=== PATIENT | male | born 1995 | race Caucasian/White ===

== ENCOUNTER 2019-04-03 18:30 | Emergency (ER) | payer MEDICARE, OTHER ==
[~2019-04-03] VITALS: Ht 170.2 cm; Wt 53.6 kg
--- NOTE | 2019-04-03 18:36 | PHYS DOC ---
Past History Past Medical History History of cyclic vomiting Adult General Chief Complaint Chief Complaint: NAUSEA/VOMITING/DIARRHEA " I am visiting [facility].. and I had Palauan.. and I ve been vomiting ever since.. I have cyclic vomiting syndrome... " HPI HPI Patient is a 23 year old male who presents with above hx and complaints of cyclic vomiting syndrome. Patient has been evaluated for cyclic vomiting at several institution including the [facility]. Patient does smoke marijuana daily. Does not believe that this may be contributing to cyclic vomiting. Patient denies any intake of bad food. Patient HAS had some irritable bowel gastritis issues. Patient relates he has recently Traveled from [place] to [facility] in [place] to visit friends. Patient denies any prior history of gallbladder disease. Patient localizes pain more in the lower abdomen. Patient denies any dark or tarry stools. Patient has had episodes with severe cyclic vomiting causing a small esophageal tear in his esophageal gastric junction. Patient denies other illicit drug use. Patient does smoke. Patient has remote history of premature delivery. Patient denies any specific ill contacts. Patient denies any intake bad food. Patient states that after eating "Palauan "2 days ago he's been sick ever since. Patient relates other people ate the same food did not get sick. Review of Systems Review of Systems Constitutional: Denies fever or chills [] Eyes: Denies change in visual acuity, redness, or eye pain [] HENT: Denies nasal congestion or sore throat [] Respiratory: Denies cough or shortness of breath [] Cardiovascular: No additional information not addressed in HPI [] GI:Complaints of generalize abdominal pain, nausea, vomiting. Denies bloody stools or diarrhea [] : Denies dysuria or hematuria [] Musculoskeletal: Denies back pain or joint pain [] Integument: Denies rash or skin lesions [] Neurologic: Denies headache, focal weakness or sensory changes [] Endocrine: Denies polyuria or polydipsia [] All other systems were reviewed and found to be within normal limits, except as documented in this note. Family History Family History Noncontributory Current Medications Current Medications See nursing for home medications Allergies Allergies No known drug allergies Physical Exam Physical Exam Constitutional: Reports he is in acute distress, non-toxic appearance. [] HENT: Normocephalic, atraumatic, bilateral external ears normal, oropharynx dry,, no oral exudates, nose normal. [] Eyes: PERRLA, EOMI, conjunctiva normal, no discharge. [] Neck: Normal range of motion, no tenderness, supple, no stridor. [] Cardiovascular:Heart rate regular rhythm, no murmur [] Lungs & Thorax: Bilateral breath sounds equal apex with scattered wheezes on auscultation [] Abdomen: Bowel sounds hyperactive, soft, lower left quadrant tenderness, no masses, no pulsatile masses. [] Rebound to lower left quadrant. Skin: Warm, dry, no erythema, no rash. [] Back: No tenderness, no CVA tenderness. [] Extremities: No tenderness, no cyanosis, no clubbing, ROM intact, no edema. [] No true psoas sign. Neurologic: Alert and oriented X 3, normal motor function, normal sensory function, no focal deficits noted. [] Psychologic: Affect anxious, judgement normal, mood normal. [] EKG EKG [] Radiology/Procedures Radiology/Procedures [][place] [address] IMAGING REPORT Signed PATIENT: OSCAR CAN AACCOUNT: [id number] : 1995 LOCATION: ER AGE: 23 SEX: M EXAM STATUS: REG ER ORD. PHYSICIAN: SUREKHA HUIZAR MD REASON: n/v PROCEDURE: ACUTE ABDOMEN SERIES Abdominal Series dated 04/03/2019. No comparison available. Clinical Indication: Abdominal pain. Findings: Single upright PA view the chest shows normal heart and mediastinal contours. The lungs are clear without focal consolidation. Vascular interstitium is within normal limits. Flat and upright views of the abdomen show nondilated gas filled loops of bowel. No air-fluid levels on the upright view. No abnormal calcifications are identified. There is no evidence of pneumoperitoneum. Impression chest: No acute radiographic abnormality. Impression abdomen: Non-obstructive bowel gas pattern. Electronically signed by: Jose Valencia MD (04/03/2019 7:16 PM) [facility] DICTATED AND SIGNED BY: JOSE VALENCIA MD DATE: 04/03/19 1916 CC: SUREKHA HUIZAR MD; PARAG [facility]VELES DENTAL RESIDENT; NON,STAFF ~ Course & Med Decision Making Course & Med Decision Making Pertinent Labs and Imaging studies reviewed. (See chart for details) Patient's stay on a clear fluid diet only for the next 48 hours. No solids. No m ilk products. Must allow bowel rest. Would avoid smoking. Would avoid using marijuana. Must follow-up primary care. Take Zofran 8 up to 4 x day for active vomiting. Take Zantac 300 mg twice day. Must follow-up. [] 1. Abdomen pain 2. History of cyclic vomiting 3. History of marijuana use daily- 4. Dehydration 5. Mild elevation of leukocytosis 13.6 6. Elevated BUN 36 7. Elevated glucose 128 8. Elevation in bili total 5.6 with direct 0.3. 9. Elevated albumin 5. Dragon Disclaimer Dragon Disclaimer This electronic medical record was generated, in whole or in part, using a voice recognition dictation system. Departure Departure: Disposition: 01 HOME/RESIDENCE PRIOR TO ADM Condition: STABLE Scripts Ranitidine Hcl (ZANTAC) 150 Mg Tablet 300 MG PO BID for gastritis, for 30 Days, #120 TAB Prov: SUREKHA HUIZAR MD 04/03/19 Ondansetron Hcl (ZOFRAN) 8 Mg Tablet 8 MG PO QIDPRN PRN for NAUSEA/VOMITING, #30 BOTTLE Prov: SUREKHA HUIZAR MD 04/03/19 Mekhi Disclaimer This chart was dictated in whole or in part using Voice Recognition software in a busy, high-work load, and often noisy Emergency Department environment. It may contain unintended and wholly unrecognized errors or omissions. SUREKHA HUIZAR MD Apr 03, 2019 18:36
[2019-04-03] MEDS ORDERED: ONDA8TAB9 PO (18:42)
[2019-04-03] MEDS ORDERED: IV RINGERS SOLUTION,LACTATED 1,000 ML IV SCH (19:00)
[2019-04-03 19:10] LABS: BASO # 0.1 x10^3/uL (0.0-0.2); BASO % 0 % (0-3); EOS % 0 % (0-3); HEMATOCRIT 50.8 % (39.0-53.0); HEMOGLOBIN 17.4 g/dL (13.0-17.5); LYMPH # 1.3 x10^3/uL (1.0-4.8); LYMPH % 10 % (24-48); MEAN CORPUSCULAR HEMOGLOBIN 30 pg (25-35); MEAN CORPUSCULAR HGB CONC 34 g/dL (31-37); MEAN CORPUSCULAR VOLUME 88 fL (79-100); MONO # 1.1 x10^3/uL (0.0-1.1); MONO % 8 % (0-9); NEUT # 11.1 x10^3uL (1.8-7.7); NEUT % 82 % (31-73); PLATELET COUNT 290 x10^3/uL (140-400); RED BLOOD COUNT 5.78 x10^6/uL (4.30-5.70); RED CELL DISTRIBUTION WIDTH 13.1 % (11.5-14.5); WHITE BLOOD COUNT 13.6 x10^3/uL (4.0-11.0)
--- NOTE | 2019-04-03 19:19 | RAD ---
Abdominal Series dated 04/03/2019. No comparison available. Clinical Indication: Abdominal pain. Findings: Single upright PA view the chest shows normal heart and mediastinal contours. The lungs are clear without focal consolidation. Vascular interstitium is within normal limits. Flat and upright views of the abdomen show nondilated gas filled loops of bowel. No air-fluid levels on the upright view. No abnormal calcifications are identified. There is no evidence of pneumoperitoneum. Impression chest: No acute radiographic abnormality. Impression abdomen: Non-obstructive bowel gas pattern. Electronically signed by: Jose Valencia MD (04/03/2019 7:16 PM) [facility]
[2019-04-03 19:23] LABS: ALBUMIN 5.5 g/dL (3.4-5.0); CALCIUM 10.6 mg/dL (8.5-10.1); CREATININE 1.2 mg/dL (0.7-1.3); DIRECT BILIRUBIN 0.3 mg/dL (0.0-0.2); GFR 73.8; POTASSIUM 4.1 mmol/L (3.5-5.1); TOTAL BILIRUBIN 5.6 mg/dL (0.2-1.0); TOTAL PROTEIN 8.9 g/dL (6.4-8.2)
[2019-04-03] MEDS ORDERED: diphenhydrAMINE 50 MG/ML VIAL IV ONE (19:30)
[2019-04-03] MEDS ORDERED: ONDANSETRON ODT 4 MG TAB.RAPDIS PO ONE (19:30)
[2019-04-03] MEDS ORDERED: ONDANSETRON PF 4 MG/2 ML VIAL. IVP ONE (19:30)
[2019-04-03] MEDS ORDERED: FAMOTIDINE 20 MG/2 ML VIAL IVP ONE (19:30)
[2019-04-03] MEDS ORDERED: PROCHLORPERAZINE 10 MG/2 ML VIAL. IV ONE (19:30)
[2019-04-03] MEDS ORDERED: MORPHINE SULFATE 10 MG/ML SYRINGE. SQ ONE (19:30)
[2019-04-03] MEDS ORDERED: IV RINGERS SOLUTION,LACTATED 1,000 ML IV ONE (20:00)
[2019-04-03] MEDS ORDERED: RANI-376 PO (20:06)
[2019-04-03] MEDS ORDERED: MAGNESIUM HYDROXIDE 2,400 MG/30 ML ORAL.SUSP. PO ONE (20:15)
[2019-04-03 21:36] LABS: BARBITURATES NEG (NEG); BENZODIAZEPINES NEG (NEG); CANNABINOIDS POS (NEG); COCAINE NEG (NEG); METHADONE NEG (NEG); OPIATES POS (NEG); PHENCYCLIDINE NEG (NEG)
[2019-04-03 21:47] LABS: AMPHETAMINE/METHAMPHETAMINE NEG (NEG)
[2019-04-03 21:48] LABS: BILIRUBIN,URINE NEG (NEG); CLARITY,URINE HAZY; COLOR,URINE AMBER; GLUCOSE,URINE NEG (NEG)
[2019-04-03 21:49] LABS: BACTERIA,URINE 0 /HPF (0-FEW); HYALINE CASTS, URINE OCC /HPF; NITRITE,URINE NEG (NEG); SQUAMOUS EPITHELIAL CELL,UR OCC /LPF; UROBILINOGEN,URINE 0.2 mg/dL (0.2 mg/dL); WBC,URINE 0 /HPF (0-4)
[2019-04-03 22:04] VITALS: BP 96/70
== END 2019-04-03 22:10 | disposition home or self-care (01) ==
LOC: ER 18:30
DX: R11.2 Nausea with vomiting, unspecified (principal); E86.0 Dehydration; R10.84 Generalized abdominal pain; D72.829 Elevated white blood cell count, unspecified; R73.9 Hyperglycemia, unspecified; R77.0 Abnormality of albumin; R79.89 Other specified abnormal findings of blood chemistry; E80.7 Disorder of bilirubin metabolism, unspecified; F12.10 Cannabis abuse, uncomplicated
CPT/HCPCS: 36415; 74022; 80048; 80076; 80307; 81001; 82150; 82550; 83690; 84484; 85025; 85610; 85730; 96361; 96372; 96374; 96375; 99285; J1200; J2270; J2405; J3490; J7120